=== PATIENT | female | born 1965 | race Hispanic/Latino ===

== ENCOUNTER 2017-12-16 19:33 | Emergency (ER) | payer BC | END 2017-12-16 20:28 | disposition home or self-care (01) | LOC: SCSER 19:33 | DX: B02.9 Zoster without complications (principal); E11.9 Type 2 diabetes mellitus without complications; E78.5 Hyperlipidemia, unspecified; I10 Essential (primary) hypertension; Z79.899 Other long term (current) drug therapy; Z79.84 Long term (current) use of oral hypoglycemic drugs | CPT/HCPCS: 99282 ==

== ENCOUNTER 2018-07-03 11:17 | Outpatient (CLI) | payer BC ==
--- NOTE | 2018-07-09 16:09 | MMO ---
BILATERAL MAMMOGRAMS: History: Screening mammography. Comparison: Multiple outside exams back to 02-01-14. FINDINGS: Heterogeneously dense fibroglandular tissue and benign appearing calcifications. No dominant mass or suspicious calcifications. This study is interpreted with the assistance of computer aided detection. IMPRESSION: BIRADS category 1 - negative. Suggest routine follow up. POS: [facility]
== END 2018-07-03 11:18 | disposition home or self-care (01) ==
LOC: SCSMAMMO 11:17
PROVIDERS: ATTEND Family Medicine
DX: Z12.31 Encounter for screening mammogram for malignant neoplasm of breast (principal)
CPT/HCPCS: 77067